=== PATIENT | female | born 1960 | race American Indian/Alaskan Native ===

== ENCOUNTER 2022-05-05 06:08 | Emergency (ER) | payer MEDICARE ==
[2022-05-05 06:29] VITALS: BP 162/89
[2022-05-05] MEDS ORDERED: ONDANSETRON 4 MG/2 ML INJ IV ONE (10:39)
[2022-05-05] MEDS ORDERED: HYDROmorphone 1 MG/1 ML INJ IV ONE (10:39)
[2022-05-05] MEDS ORDERED: SODIUM CHLORIDE 0.9% 1000 ML 1,000 ML IV ONE (10:39)
[2022-05-05 11:33] LABS: Mucus,Urine FEW /HPF
[2022-05-05 11:37] LABS: Color,Urine Yellow (Yellow)
[2022-05-05 11:37] LABS: Hematocrit 40.4 % (30.3-42.9); Hemoglobin 13.4 gm/dl (10.1-14.3); Mean Corpuscular HGB Conc 33 % (30-34); Mean Corpuscular Volume 100 fl (79-97); Red Blood Count 4.05 M/mm3 (3.65-5.03)
[2022-05-05 11:38] LABS: Platelet Count 84 K/mm3 (140-440)
[2022-05-05 11:42] LABS: Alanine Aminotransferase 36 units/L (7-56); Albumin 4.1 g/dL (3.9-5); Blood Urea Nitrogen 13 mg/dL (7-17); Calcium 9.4 mg/dL (8.4-10.2); Hemolysis Index 37
[2022-05-05 11:44] LABS: BUN/Creatinine Ratio 19
--- NOTE | 2022-05-05 12:20 | Emergency Department Report ---
ED Abdominal Pain HPI - General Chief Complaint: Back Pain/Injury Stated Complaint: BACK PAIN Time Seen by Provider: 05/05/22 10:08 Source: patient Mode of arrival: Ambulatory Limitations: No Limitations - History of Present Illness Initial Comments: This is a 62-year-old female nontoxic, well nourished in appearance, no acute signs of distress presents to the ED with 2 complaints: 1) c/o of nausea and abdominal pain several days. Patient denies any vomiting. Patient describes abdominal pain as cramping and aching with level of 8/10 diffuse. Patient denies chest pain, short of breath, fever, hemoptysis, blood in stool, chills, headache, stiff neck, numbness or tingling. Patient denies any diarrhea or constipation. Denies any blood in stool. Patient denies any recent travels. P 2) c/o of acute on chronic lower back pain. Patient states has history of sciatica nerve pain which is similar symptoms as today. Patient states that donna n radiates through to his right lower extremity. Patient denies any trauma. Denies any bladder or bowel instability. Patient denies any urinary symptoms. Denies any fever, chills, vomiting, headache, stiff neck, chest pain or shortness of breath. Patient denies any numbness or tingling. MD Complaint: abdominal pain -: days(s) Location: diffuse Radiation: none Migration to: no migration Severity: mild Severity scale (0 -10): 8 Quality: cramping, aching Consistency: constant Improves With: nothing Worsens With: nothing Associated Symptoms: nausea, other (back pain). denies: vomiting, diarrhea, fever, chills, constipation, dysuria, hematemesis, hematochezia, melena, anorexia, syncope - Related Data Home Medications Medication Instructions Recorded Confirmed Last Taken Potassium Chloride [Klor-Con 10] 20 meq PO DAILY 12/03/14 12/03/14 12/01/14 Revlimid 25 mg PO DAILY 12/03/14 12/03/14 12/03/14 amLODIPine 0 mg PO DAILY 12/03/14 12/03/14 12/01/14 hydroCHLOROthiazide [HCTZ] 25 mg PO QDAY 12/03/14 12/03/14 12/01/14 Previous Rx's Medication Instructions Recorded Last Taken Type Promethazine [Phenergan SUPPOS] [address] Q6HR PRN #20 supp.rect 08/17/13 Unknown Rx levoFLOXacin [Levaquin TAB] 750 mg PO Q24HR #4 tablet 08/03/15 Unknown Rx Azithromycin [Zithromax Z-EDIE] 250 mg PO DAILY #6 tab 03/22/20 Unknown Rx Acetaminophen [Acetaminophen 8 650 mg PO Q8H PRN #12 tab 05/05/22 Unknown Rx Hour] Cyclobenzaprine [Flexeril] 10 mg PO QHS PRN #10 tab 05/05/22 Unknown Rx Ondansetron [Zofran Odt] 4 mg PO Q8HR PRN #12 tab.rapdis 05/05/22 Unknown Rx Allergies Allergy/AdvReac Type Severity Reaction Status Date / Time oxycodone HCl [From Percocet] Allergy Vomiting Verified 03/22/20 16:45 propoxyphene napsylate Allergy Vomiting Verified 03/22/20 16:45 [From Darvocet-N 100] morphine AdvReac Vomiting Verified 03/22/20 16:45 ED Review of Systems ROS: Stated complaint: BACK PAIN Other details as noted in HPI Comment: All other systems reviewed and negative Constitutional: denies: chills, fever Eyes: denies: eye pain, eye discharge, vision change ENT: denies: ear pain, throat pain Respiratory: denies: cough, shortness of breath, wheezing Cardiovascular: denies: chest pain, palpitations Endocrine: no symptoms reported Gastrointestinal: abdominal pain, nausea. denies: vomiting, diarrhea, constipation, hematemesis, melena, hematochezia Genitourinary: denies: urgency, dysuria, discharge Musculoskeletal: back pain. denies: joint swelling, arthralgia Skin: denies: rash, lesions Neurological: denies: headache, weakness, paresthesias Psychiatric: denies: anxiety, depression Hematological/Lymphatic: denies: easy bleeding, easy bruising ED Past Medical Hx - Past Medical History Previous Medical History?: Yes Hx Hypertension: Yes Hx of Cancer: Yes (Leukemia, Multiple Myeloma, breast) Additional medical history: Intestinal Blockage - Surgical History Past Surgical History?: Yes Additional Surgical History: Hysterectomy, Intestinal Blockage in July, stem cell transplant - Social History Smoking Status: Never Smoker Substance Use Type: None - Medications Home Medications: Home Medications Medication Instructions Recorded Confirmed Last Taken Type Promethazine [Phenergan SUPPOS] [address] Q6HR PRN #20 supp.rect 08/17/13 12/03/14 Unknown Rx Potassium Chloride [Klor-Con 10] 20 meq PO DAILY 12/03/14 12/03/14 12/01/14 Hi story Revlimid 25 mg PO DAILY 12/03/14 12/03/14 12/03/14 History amLODIPine 0 mg PO DAILY 12/03/14 12/03/14 12/01/14 History hydroCHLOROthiazide [HCTZ] 25 mg PO QDAY 12/03/14 12/03/14 12/01/14 History levoFLOXacin [Levaquin TAB] 750 mg PO Q24HR #4 tablet 08/03/15 Unknown Rx Azithromycin [Zithromax Z-EDIE] 250 mg PO DAILY #6 tab 03/22/20 Unknown Rx Acetaminophen [Acetaminophen 8 650 mg PO Q8H PRN #12 tab 05/05/22 Unknown Rx Hour] Cyclobenzaprine [Flexeril] 10 mg PO QHS PRN #10 tab 05/05/22 Unknown Rx Ondansetron [Zofran Odt] 4 mg PO Q8HR PRN #12 tab.rapdis 05/05/22 Unknown Rx ED Physical Exam - General Limitations: No Limitations General appearance: alert, in no apparent distress - Head Head exam: Present: atraumatic, normocephalic - Eye Eye exam: Present: normal appearance - Neck Neck exam: Present: normal inspection, full ROM. Absent: lymphadenopathy - Respiratory Respiratory exam: Present: normal lung sounds bilaterally. Absent: respiratory distress, wheezes, rales, rhonchi, stridor, chest wall tenderness, accessory muscle use, decreased breath sounds, prolonged expiratory - Cardiovascular Cardiovascular Exam: Present: regular rate, normal rhythm, normal heart sounds. Absent: bradycardia, tachycardia, irregular rhythm, systolic murmur, diastolic murmur, rubs, gallop - GI/Abdominal GI/Abdominal exam: Present: soft, tenderness (diffuse), normal bowel sounds, hernia (Reducible with no signs of gangrene). Absent: distended, guarding, rebound, rigid, diminished bowel sounds - Extremities Exam Extremities exam: Present: normal inspection, full ROM, normal capillary refill. Absent: tenderness - Back Exam Back exam: Present: normal inspection, full ROM, paraspinal tenderness (lumbar paraspinal). Absent: tenderness, CVA tenderness (R), CVA tenderness (L), muscle spasm, vertebral tenderness, rash noted - Expanded Back Exam Expanded Back exam: Absent: saddle anesthesia Back exam: Negative Straight Leg Raising: Left, Right - Neurological Exam Neurological exam: Present: alert, oriented X3, normal gait - Psychiatric Psychiatric exam: Present: normal affect, normal mood - Skin Skin exam: Present: warm, dry, intact, normal color. Absent: rash ED Course Vital Signs 05/05/22 06:25 Temperature 98.4 F Pulse Rate 81 Respiratory 18 Rate Blood Pressure 162/89 O2 Sat by Pulse 100 Oximetry - Reevaluation(s) Reevaluation #1: 05/05/22 12:19 Patient is speaking in full sentences with no signs of distress noted. ED Medical Decision Making - Lab Data Result diagrams: 05/05/22 11:04 05/05/22 11:04 Lab Results 05/05/22 05/05/22 05/05/22 Range/Units 10:57 11:04 11:04 WBC 4.8 (4.5-11.0) K/mm3 RBC 4.05 (3.65-5.03) M/mm3 Hgb 13.4 (10.1-14.3) gm/dl Hct 40.4 (30.3-42.9) % MCV 100 H (79-97) fl MCH 33 H (28-32) pg MCHC 33 (30-34) % RDW 17.0 H (13.2-15.2) % Plt Count 84 L (140-440) K/mm3 [place] % (Auto) Machine Maintenance Servicer Add Manual Diff Complete Total Counted 100 Seg Neuts % (Manual) 54.0 (40.0-70.0) % Band Neutrophils % 0 % Lymphocytes % (Manual) 27.0 (13.4-35.0) % Reactive Lymphs % (Man) 0 % Monocytes % (Manual) 14.0 H (0.0-7.3) % Eosinophils % (Manual) 5.0 H (0.0-4.3) % Basophils % (Manual) 0 (0.0-1.8) % Metamyelocytes % 0 % Myelocytes % 0 % Promyelocytes % 0 % Blast Cells % 0 % Nucleated RBC % Not Reportable Seg Neutrophils # Man 2.6 (1.8-7.7) K/mm3 Band Neutrophils # 0.0 K/mm3 Lymphocytes # (Manual) 1.3 (1.2-5.4) K/mm3 Abs React Lymphs (Man) 0.0 K/mm3 Monocytes # (Manual) 0.7 (0.0-0.8) K/mm3 Eosinophils # (Manual) 0.2 (0.0-0.4) K/mm3 Basophils # (Manual) 0.0 (0.0-0.1) K/mm3 Metamyelocytes # 0.0 K/mm3 Myelocytes # 0.0 K/mm3 Promyelocytes # 0.0 K/mm3 Blast Cells # 0.0 K/mm3 WBC Morphology Not Reportable Hypersegmented Neuts Not Reportable Hyposegmented Neuts Not Reportable Hypogranular Neuts Not Reportable Smudge Cells Not Reportable Toxic Granulation Not Reportable Toxic Vacuolation Not Reportable Dohle Bodies Not Reportable Pelger-Huet Anomaly Not Reportable Cristian Rods Not Reportable Platelet Estimate Consistent w auto Clumped Platelets Not Reportable Plt Clumps, EDTA Not Reportable Large Platelets Few Giant Platelets Not Reportable Platelet Satelliting Not Reportable Plt Morphology Comment Not Reportable RBC Morphology Not Reportable Dimorphic RBCs Not Reportable Polychromasia Few Hypochromasia Not Reportable Poikilocytosis Not Reportable Anisocytosis Not Reportable Microcytosis Not Reportable Macrocytosis Not Reportable Spherocytes Not Reportable Pappenheimer Bodies Not Reportable Sickle Cells Not Reportable Target Cells Not Reportable Tear Drop Cells 1+ Ovalocytes Not Reportable Helmet Cells Not Reportable [place] Bodies Not Reportable [place] Rings Not Reportable [place] Cells Not Reportable Bite Cells Not Reportable Crenated Cell Not Reportable Elliptocytes Not Reportable Acanthocytes (Spur) Few Rouleaux Not Reportable Hemoglobin C Crystals Not Reportable Schistocytes Not Reportable Malaria parasites Not Reportable [place] Bodies Not Reportable Hem Pathologist Commnt No Sodium 143 (137-145) mmol/L Potassium 4.1 (3.6-5.0) mmol/L Chloride 105.3 (98-107) mmol/L Carbon Dioxide 27 (22-30) mmol/L Anion Gap 15 mmol/L BUN 13 (7-17) mg/dL Creatinine 0.7 (0.6-1.2) mg/dL Estimated GFR > 60 ml/min BUN/Creatinine Ratio 19 % Glucose 90 (65-100) mg/dL Calcium 9.4 (8.4-10.2) mg/dL Total Bilirubin 0.50 (0.1-1.2) mg/dL AST 17 (5-40) units/L ALT 36 (7-56) units/L Alkaline Phosphatase 39 (35-129) units/L Total Protein 5.9 L (6.3-8.2) g/dL Albumin 4.1 (3.9-5) g/dL Albumin/Globulin Ratio 2.3 % Lipase 28 (13-60) units/L Urine Color Yellow (Yellow) Urine Turbidity Slightly cloudy (Clear) Specific [place] (Man) 1.015 (1.003-1.030) Ur Protein (Man) 1+ (Negative) mg/dL Ur Ketones (Man) Negative (Negative) Ur Nitrite (Man) Negative (Negative) Ur Reducing Substances Not Reportable Urine Bilirubin (Man) Negative (Negative) Urine Ictotest Not Reportable Leukocyte Esterase (Man) Negative (Negative) Urine WBC (Auto) 1.0 (0.0-6.0) /HPF Urine RBC (Auto) 1.0 (0.0-6.0) /HPF U Epithel Cells (Auto) < 1.0 (0-13.0) /HPF Urine RBC (Manual) Negative (Negative) Urine Mucus Few /HPF Urine Yeast (Budding) 1+ /HPF - Radiology Data [facility] [address] [place] [address] Cat Scan Report Signed Patient: ED BALL MR#: [id number] : 1960 Acct:[id number] Age/Sex: 62 / F ADM Date: 05/05/22 Loc: ED Attending Dr: Ordering Physician: ESTER DE LA ROSA NP Date of Service: 05/05/22 Procedure(s): CT abdomen pelvis w con Accession Number(s): [id number] cc: ESTER DE LA ROSA NP CT ABDOMEN AND PELVIS WITH CONTRAST INDICATION / CLINICAL INFORMATION: abd pain, flank pain, lumbar pain. TECHNIQUE: Axial CT images were obtained through the abdomen and pelvis after IV contrast. All CT scans at this location are performed using CT dose reduction for ALARA by means of automated exposure control. COMPARISON: CT dated 06/18/12 and 08/17/13 FINDINGS: LOWER CHEST: No significant abnormality. LIVER: No significant abnormality. GALLBLADDER: No significant abnormality. BILE DUCTS: No significant abnormality. PANCREAS: No significant abnormality. SPLEEN: No significant abnormality. ADRENALS: No significant abnormality. RIGHT KIDNEY / URETER: No significant abnormality. LEFT KIDNEY / URETER: No significant abnormality. STOMACH / SMALL BOWEL: No acute abnormality. COLON: No acute abnormality. APPENDIX: No significant abnormality. PERITONEUM: No free fluid. No free air. No fluid collection. LYMPH NODES: No significant adenopathy. AORTA / ARTERIES: No significant abnormality. IVC / VEINS: No significant abnormality. URINARY BLADDER: No significant abnormality. REPRODUCTIVE ORGANS: Uterus is absent. No significant adnexal abnormality. ADDITIONAL FINDINGS: Multiple supraumbilical, umbilical, and infraumbilical ventral hernias containing nonobstructed loops of colon and small bowel. SKELETAL SYSTEM: Extensive lucent lesions throughout the entire visualized osseous skeleton appears similar to prior CT from 2011 and 2012. Chronic appearing compression deformity of L2 with 50% height loss. IMPRESSION: 1. No acute process in the abdomen or pelvis. 2. Multiple abdominal wall ventral hernias containing nonobstructed loops of bowel. 3. Extensive lucent lesions throughout the osseous skeleton likely related to multiple myeloma. Appearance is similar to prior CTs. 4. Chronic L2 compression deformity. Signer Name: Corina Shepherd MD Signed: 05/05/2022 1:14 PM Workstation Name: [id number] Transcribed By: DT Dictated By: Toi Shepherd MD Electronically Authenticated By: Toi Shepherd MD Signed Date/Time: 05/05/22 1314 DD/ 1306 TD/TT: - Medical Decision Making This is a 62-year-old female that presents with abdominal pain and low back pain. Patient is stable and was examined by me. There is no spinal tenderness. There is no cauda equina syndrome during examination. No bladder or bowel instability. Labs obtained. UA obtained. CT of abdomen obtained and dictated by the radiologist. Patient is notified of the report with no questions noted by the patient. Vital signs are stable prior to discharge. Patient received medi césar treatment in the ED which patient stated symptoms has resovled and subsided. Was instructed note to operate any machinery due to possible drowsiness and stated someone will drive the patient home. A by mouth challenge has been obtained and patient tolerated well with no nausea vomiting. Patient was also instructed to Follow-up with a primary care doctor in 3-5 days or if symptoms worsen and continue return to emergency room as soon as possible. At time of discharge, the patient does not seem toxic or ill in appearance. No acute signs of distress noted. Patient agrees to discharge treatment plan of care. No further questions noted by the patient. Critical care attestation.: If time is entered above; I have spent that time in minutes in the direct care of this critically ill patient, excluding procedure time. ED Disposition Clinical Impression: Nausea Abdominal hernia Qualifiers: Hernia type: unspecified Obstruction and gangrene presence: without obstruction or gangrene Recurrence: not specified as recurrent Qualified Code(s): K46.9 - Unspecified abdominal hernia without obstruction or gangrene Low back pain Qualifiers: Chronicity: chronic Back pain laterality: bilateral Sciatica presence: with sciatica Sciatica laterality: sciatica of right side Qualified Code(s): M54.41 - Lumbago with sciatica, right side; G89.29 - Other chronic pain Abdominal pain Qualifiers: Abdominal location: generalized Qualified Code(s): R10.84 - Generalized abdominal pain Disposition: 01 HOME / SELF CARE / HOMELESS Is pt being admited?: No Does the pt Need Aspirin: No Condition: Stable Additional Instructions: Follow-up with a primary care and infant toddler lead teacher doctor in 3-5 days or if symptoms worsen and continue return to emergency room as soon as possible. Prescriptions: Cyclobenzaprine [Flexeril] 10 mg PO QHS PRN #10 tab PRN Reason: Muscle Spasm Acetaminophen [Acetaminophen 8 Hour] 650 mg PO Q8H PRN #12 tab PRN Reason: Pain , Severe (7-10) Ondansetron [Zofran Odt] 4 mg PO Q8HR PRN #12 tab.rapdis PRN Reason: Nausea Referrals: MICHAEL BENÍTEZ MD [Primary Care Provider] - 3-5 Days PRIMARY CARE, [Referring] - 3-5 Days [facility] [Provider Group] - 3-5 Days Time of Disposition: 14:26
--- NOTE | 2022-05-05 13:18 | Cat Scan Report ---
CT ABDOMEN AND PELVIS WITH CONTRAST INDICATION / CLINICAL INFORMATION: abd pain, flank pain, lumbar pain. TECHNIQUE: Axial CT images were obtained through the abdomen and pelvis after IV contrast. All CT sc ans at this location are performed using CT dose reduction for ALARA by means of automated exposure c ontrol. COMPARISON: CT dated 06/18/12 and 08/17/13 FINDINGS: LOWER CHEST: No significant abnormality. LIVER: No significant abnormality. GALLBLADDER: No significant abnormality. BILE DUCTS: No significant abnormality. PANCREAS: No significant abnormality. SPLEEN: No significant abnormality. ADRENALS: No significant abnormality. RIGHT KIDNEY / URETER: No significant abnormality. LEFT KIDNEY / URETER: No significant abnormality. STOMACH / SMALL BOWEL: No acute abnormality. COLON: No acute abnormality. APPENDIX: No significant abnormality. PERITONEUM: No free fluid. No free air. No fluid collection. LYMPH NODES: No significant adenopathy. AORTA / ARTERIES: No significant abnormality. IVC / VEINS: No significant abnormality. URINARY BLADDER: No significant abnormality. REPRODUCTIVE ORGANS: Uterus is absent. No significant adnexal abnormality. ADDITIONAL FINDINGS: Multiple supraumbilical, umbilical, and infraumbilical ventral hernias containin g nonobstructed loops of colon and small bowel. SKELETAL SYSTEM: Extensive lucent lesions throughout the entire visualized osseous skeleton appears s imilar to prior CT from 2011 and 2012. Chronic appearing compression deformity of L2 with 50% height loss. IMPRESSION: 1. No acute process in the abdomen or pelvis. 2. Multiple abdominal wall ventral hernias containing nonobstructed loops of bowel. 3. Extensive lucent lesions throughout the osseous skeleton likely related to multiple myeloma. Appea anna is similar to prior CTs. 4. Chronic L2 compression deformity. Signer Name: Corina Shepherd MD Signed: 05/05/2022 1:14 PM Workstation Name: [id number]
[2022-05-05 13:23] LABS: Basophils % (Manual) 0 % (0.0-1.8); Total Cells Counted 100
[2022-05-05 13:25] LABS: Large Platelets Few; Platelet Estimate Consistent w Auto; Tear Drop Cells 1+
== END 2022-05-05 15:26 | disposition home or self-care (01) ==
LOC: ED 06:08
DX: R10.84 Generalized abdominal pain (principal); M54.50 Low back pain, unspecified; R11.0 Nausea; I10 Essential (primary) hypertension; Z90.710 Acquired absence of both cervix and uterus; Z98.890 Other specified postprocedural states; Z79.899 Other long term (current) drug therapy; Z88.5 Allergy status to narcotic agent; Z88.8 Allergy status to other drugs, medicaments and biological substances
CPT/HCPCS: 36415; 74177; 80053; 81001; 83690; 85007; 85025; 96361; 96374; 96375; 99284; J1170; J2405; J7030; Q9967